=== PATIENT | male | born 1975 | race Caucasian/White ===

== ENCOUNTER 2016-11-10 20:03 | Emergency (ER) | payer OTHER ==
[~2016-11-10] VITALS: Ht 190.5 cm; Wt 108.0 kg
--- NOTE | ~2016-11-10 | HC ---
[facility] [place] [address] CONSULTATION Name: LUÍS SHAW Room #: [facility] [id number] Admission: 11/10/16 Attend Phys: Discharge: 11/11/16 Date of : 77 Report #: [id number] THIS REPORT FOR: //name// CC: NIESHA physician/PCP Pino Raya DATE OF SERVICE: 11/10/2016 REASON FOR CONSULTATION: Possible peritonsillar abscess. HISTORY OF PRESENT ILLNESS: The patient is a 41-year-old gentleman who presented to the Emergency Room from a [facility] in [place], [place] today. The patient presents with a 2-week history of odynophagia that was progressing more to the left side. He is not sure of how along it has been on the left side. He did notice some mild left otalgia and some mild trismus. His voice became more harsh. He was having a harder time swallowing his saliva. He does note that he had a family member who is positive for strep throat. While in the Emergency Department, the patient was evaluated. A CT scan of his neck was done, which demonstrated some superior left peritonsillar abscess with medial and inferior displacement of the tonsil, there is some peritonsillar soft tissue swelling as well. I was consulted for further possible management. PAST MEDICAL HISTORY: Unremarkable. MEDICATIONS: He is presently not on any medications. ALLERGIES: He has no known medical allergies. REVIEW OF SYSTEMS: Unremarkable aside from the pertinent findings on his history of present illness. PHYSICAL EXAMINATION: GENERAL: The patient was seen in the Emergency Department. He is alert and oriented. VITAL SIGNS: Pulse ox 96, blood pressure 129/97, temperature 37.2. HEENT: Examination of the oral cavity reveals fair to poor dentition, multiple missing teeth, some dental caries present. The oral mucosa is somewhat dry. Thick mucus noted. Initial evaluation showed significant edema and erythema of the left soft palate, the left tonsil was inflamed, medialized and posterior inferiorly, the uvula has some mild edema, slightly deviated. The right tonsil was slightly edematous, but does not appear inflamed. NECK: Reveals no significant lymphadenopathy. He has no tender adenopathy. Laboratory test did show white count elevated at 15.7. CT scan was as noted above. He was noted not to be in any respiratory distress. He was swallowing his own secretions. He had a somewhat harsh voice, but not a full ____ voice. [facility] [address] [place] [address] CONSULTATION Name: LUÍS SHAW Room #: DEP NELSON Knutson#: [id number] Admission: 11/10/16 Attend Phys: Discharge: 11/11/16 Date of : 77 Report #: [id number] Examination of nares was unremarkable. I reviewed the CT personally, which does show somewhat multilobulated abscess of the left superior tonsillar region. ASSESSMENT: Tonsillitis with mild peritonsillar abscess without significant trismus. Does not appear to have a parapharyngeal/lateral space abscess. Based on these findings, I discussed with the patient, I recommended proceeding with a needle aspiration of the abscess cavity, see procedure note. Upon completing the procedure, the patient noted substantial relief of discomfort. His trismus was nearly resolved and his voice improved substantially. The left tonsil had been moved more superiorly and slightly medially at the end of the procedure. The patient will be discharged home on Augmentin 875 one p.o. b.i.d. for 14 days, prednisone 60 mg a day for 2 days, then 40 for 2 days, 20 for 2 days. He was encouraged to stay well hydrated. He was encouraged to rinse and spit his mouth with salt water several times a day. He will use Tylenol for pain. He was recommended to stay home from work until released back from the visit in our clinic. I recommended he follow up with either myself or Dr. Graves in our [facility] on Monday. Discussed this all with the patient, he verbalized understanding and he also understands that it is possible we need to re-aspirate this if it recurs in the next 72 hours. By: 0040 [id number] Aidan Herbert MD /isaias
--- NOTE | ~2016-11-10 | O ---
[facility] [place] [address] OPERATIVE REPORT Name: LUÍS SHAW [id number] Admission: 11/10/16 Attend Phys: Discharge: 11/11/16 Date of : 77 Report #: [id number] THIS REPORT FOR: //name// CC: NIESHA physician/PCP Pino Raya DATE OF SERVICE: 11/10/2016 PROCEDURE: Needle aspiration left peritonsillar abscess. PROCEDURE SHAPING MACHINE TENDER: Aidan Herbert M.D. ANESTHESIA: Hurricaine spray 3 mL 1% of Xylocaine 1:100,000 epinephrine. REASON FOR PROCEDURE: Left peritonsillar abscess. TECHNIQUE: After obtaining consent from the patient, the oropharynx was then liberally sprayed with Hurricaine gel over several application, after adequate anesthetic had been obtained by topical spray, I injected the above local anesthetics submucosally over the left soft palate in an area proximally even with the upper dentition and inferiorly towards the superior portion of the tonsil. After waiting several minutes, I then used an 18-gauge needle on a controlled 10 mL controlled syringe and introduced this first superiorly and medially and then after several dry taps proceeded more medially and finally once as more slightly inferiorly approximately a cm below the end of the upper dentition. I encountered the abscess pocket and removed approximately 4 or 5 mL of mucopurulent fluid with immediate shrinkage of the soft palate edema. I then reintroduced the needle on two separate occasions proceeding in a more medial and then lateral inferior direction with not much further pus coming out. I then took the 18-gauge needle and used it to slightly enlarge the aspiration pocket. I then took the curved hemostat and introduced this through the drainage port and probed it around into the abscess pocket and enlarged this enough so that I can easily admitted the entire hemostat tip. I then used suction and pushed on the abscess pocket to express approximately another 2 mL of pus. At that point, the patient noted substantial relief of discomfort. His trismus resolved and his voice improved. I did not see any further evidence of pus and on pushing on the superior tonsillar fossa; I could not express any further pus. At that point, the case was terminated. He had tolerated the procedure well. ESTIMATED BLOOD LOSS: Was scant. <ELECTRONICALLY SIGNED> By: Aidan Herbert MD 11/11/16 [id number] Aidan Herbert MD /nt
[2016-11-10 21:46] LABS: ABSOLUTE NEUTROPHILS 11.9 thou/uL (1.4-8.2); BASOPHILS 0.7 % (0.0-2.0); EOSINOPHILS 0.1 % (0.0-3.0); HEMATOCRIT 41.9 % (42.0-52.0); HEMOGLOBIN 13.8 gm/dL (14.0-18.0); LYMPHOCYTES 13.7 % (24.0-44.0); MANUAL DIFF NO; MCH 26.4 pg (26.0-34.0); MCHC 32.9 g/dL (28.0-37.0); MCV 80.1 fL (80.0-100.0); MONOCYTES 9.7 % (1.0-8.0); PLATELET COUNT 270 thou/uL (150-400); POLYS 75.8 % (36.0-66.0); RBC 5.23 mil/uL (4.50-6.00); RDW 13.4 % (10.5-14.5); WBC 15.7 thou/uL (4.0-11.0)
[2016-11-10 21:55] LABS: CALCIUM 8.7 mg/dL (8.5-10.1); CREATININE 1.1 mg/dL (0.7-1.3); POTASSIUM 3.9 mmol/L (3.5-5.1)
[2016-11-11] MEDS ORDERED: AUGMENTIN 875-1 EACH PO (00:48)
[2016-11-11] MEDS ORDERED: PREDNISONE 20 M20 MG PO (00:50)
[2016-11-11 01:00] VITALS: BP 119/74
== END 2016-11-11 01:00 | disposition home or self-care (01) ==
LOC: ER 20:03
PROVIDERS: Emergency Medicine
DX: J36 Peritonsillar abscess (principal)